=== PATIENT | male | born 2000 | race Caucasian/White ===

== ENCOUNTER 2021-08-28 02:14 | Emergency (ER) | payer MEDICAID ==
[~2021-08-28] VITALS: Ht 165.1 cm; Wt 72.6 kg
[2021-08-28 02:14] VITALS: BP_SYST 128
--- NOTE | 2021-08-28 02:14 | NUR ---
Patient to [facility] for evaluation. Side rails up.
--- NOTE | 2021-08-28 02:17 | NUR ---
Dr. Marcelino bedside for pt eval
--- NOTE | 2021-08-28 02:22 | NUR ---
Pt BIB family to ED C/O painful / burning urination, with no other hx VSS no s/s of acute distress Resting on gurney
[2021-08-28] MEDS ORDERED: cefTRIAXone 1 GM in LIDOCAINE 1%, 20 ML MDV 2.1 ML IM ONE (03:15)
[2021-08-28] MEDS ORDERED: AZITHROMYCIN 250 MG TABLET PO ONE (03:15)
--- NOTE | 2021-08-28 03:33 | NUR ---
Medications well tolerated
[2021-08-28] MEDS ORDERED: DOXY100C5 PO (03:42)
[2021-08-28 03:45] LABS: BILIRUBIN,URINE NEGATIVE (NEGATIVE); BLOOD, URINE 3+ (NEGATIVE); CLARITY/URINE CLOUDY (CLEAR); COLOR,URINE YELLOW (YELLOW); GLUCOSE,URINE NEGATIVE (NEGATIVE); KETONES,URINE NEGATIVE (NEGATIVE); LEUKOCYTE ESTERASE ,URINE 2+ (NEGATIVE); NITRITE, URINE NEGATIVE (NEGATIVE); PH,URINE 5.5 (5.0-8.0); PROTEIN URINE 1+ (NEGATIVE); UROBILINOGEN,URINE 0.2 (0.2-1.0)
[2021-08-28 04:00] VITALS: BP_SYST 129
--- NOTE | 2021-08-28 04:00 | NUR ---
Patient given written and verbal discharge instructions and verbalizes understanding. ER MD discussed with patient the results and treatment provided. Patient in stable condition. ID arm band removed. Rx of Doxycycline given. Patient educated on pain management and to follow up with PMD. Pain Scale 0/10 Opportunity for questions provided and answered. Medication side effect fact sheet provided.
[2021-08-28 07:07] LABS: RBC,URINE 20-50 /HPF (0-3); WBC,URINE 50-80 /HPF (0-3)
[2021-08-28 07:08] LABS: BACTERIA,URINE MODERATE /HPF (None Seen)
[2021-08-28 07:09] LABS: MUCUS,URINE None Seen /LPF (None Seen)
[2021-08-30 08:06] LABS: CHLAMYDIA TRACHOMATIS NAA Negative (Negative)
--- NOTE | 2021-08-30 14:50 | NUR ---
RECEIVED +GONORRHEA FROM [employer], DISCUSSED CASE WITH DR FLEIX AND PT WAS TREATED APPROPRIATELY. SPOKE WITH PT AND EXPLAINED THAT HE WAS TREATED BUT HE NEEDS TO NOTIFIED ANY SEXUAL PARTNERS, PT STATES HE UNDERSTANDS
== END 2021-08-28 04:00 | disposition home or self-care (01) ==
LOC: SED 02:14
DX: R36.9 Urethral discharge, unspecified (principal); Z20.2 Contact with and (suspected) exposure to infections with a predominantly sexual mode of transmission; Z79.899 Other long term (current) drug therapy
CPT/HCPCS: 81000; 87086; 87491; 87591; 96372; 99283; J0696; J2001; Q0144